=== PATIENT | male | born 1980 | race Caucasian/White ===

== ENCOUNTER 2017-10-13 13:46 | Emergency (ER) | payer OTHER ==
[2017-10-13 13:54] VITALS: BP 137/78; PULSE 130; TEMP 98.7; BMI 21.6
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
== END 2017-10-13 15:45 | disposition home or self-care (01) ==
LOC: JERFT 13:46
DX: S69.81XA Other specified injuries of right wrist, hand and finger(s), initial encounter (principal); Y04.0XXA Assault by unarmed brawl or fight, initial encounter; Y93.89 Activity, other specified; Y92.89 Other specified places as the place of occurrence of the external cause; Y99.8 Other external cause status
CPT/HCPCS: 73110-TC-RT; 73130-TC-RT; 99281-25

== ENCOUNTER 2022-09-29 11:11 | Emergency (ER) | payer OTHER ==
[2022-09-29 11:36] VITALS: BP 122/83; PULSE 91; RESP 16; TEMP 97.7; BMI 24.6
== END 2022-09-29 12:40 | disposition home or self-care (01) ==
LOC: JERFT 11:11
PROC: 2W3KX1Z Immobilization of Left Finger using Splint (ICD-10-PCS; principal; 2022-09-29)
DX: M20.012 Mallet finger of left finger(s) (principal); Y04.0XXA Assault by unarmed brawl or fight, initial encounter
CPT/HCPCS: 29130; 99282-25